=== PATIENT | female | born 2005 | race Caucasian/White ===

== ENCOUNTER 2025-03-23 10:17 | Outpatient (CLI) | payer MEDICAID, OTHER | END 2025-03-23 10:18 | disposition home or self-care (01) | LOC: CSHULT 10:17 | PROVIDERS: ATTEND Family Medicine | DX: Z34.02 Encounter for supervision of normal first pregnancy, second trimester (principal); Z3A.20 20 weeks gestation of pregnancy | CPT/HCPCS: 76805 ==

== ENCOUNTER 2025-05-02 15:25 | Day surgery (SDC) | payer OTHER ==
[2025-05-02 15:41] VITALS: BMI 30.9
[2025-05-02] MEDS ORDERED: hydrALAZINE 20 MG/ML VIAL SLOW IVP PRN (16:07)
== END 2025-05-02 17:40 | disposition home or self-care (01) ==
LOC: CSHLD/OP 15:25
PROVIDERS: ATTEND Family Medicine
DX: O36.8120 Decreased fetal movements, second trimester, not applicable or unspecified (principal); Z3A.26 26 weeks gestation of pregnancy; Z79.899 Other long term (current) drug therapy
CPT/HCPCS: 76819; 99282